=== PATIENT | female | born 1955 | race Caucasian/White ===

== ENCOUNTER → 2017-04-09 | Outpatient (CLI) | payer OTHER ==
[~2017-04-09] MED LIST: AZE137NAPT NS; MUSINEX PO; [UNRECOGNIZED DRUG - CODE] NS
--- NOTE | 2017-04-10 11:43 | RADIOLOGY IMAGING REPORT ---
FACILITY: [facility] - [place] PATIENT NAME: GINA JEONG : [id number] MR: [id number] V: [id number] EXAM DATE: [id number] ORDERING PHYSICIAN: DUKE HAWLEY TECHNOLOGIST: Alena Hernandez PROCEDURE:BILATERAL DIGITAL SCREENING MAMMOGRAM WITH CAD ASSISTED INTERPRETATION & 3D BREAST TOMOSYNTHYSIS COMPARISON:Prior mammograms 04/08/16, 03/20/15, 02/14/14, 02/08/14, 11/12/12, 11/06/11 INDICATIONS:SCREENING FINDINGS: Moderately dense fibroglandular tissue is seen throughout the breasts. The parenchymal pattern has remained stable when allowing for difference in mammographic technique & patient positioning. There is no evidence of malignant appearing mass, malignant appearing calcification or secondary sign of malignancy in either breast. DIAGNOSTIC CATEGORY 2--BENIGN FINDING. RECOMMENDATIONS: ROUTINE MAMMOGRAM AND CLINICAL EVALUATION. IMPRESSION: BIRADS 2: Benign finding 1. No significant abnormality is seen Dictated by: Karime Najera M.D. on 04/09/2017 at 14:47 Transcribed by: CARL on 04/09/2017 at 14:56 Approved by: Karime Najera M.D. on 04/10/2017 at 11:42 [facility]
== END ==
LOC: MAMO 01:53
PROVIDERS: ATTEND Obstetrics & Gynecology
DX: Z12.31 Encounter for screening mammogram for malignant neoplasm of breast (principal)
CPT/HCPCS: 77063; 77067

== ENCOUNTER → 2017-06-18 | Outpatient (CLI) | payer OTHER ==
[~2017-06-18] MED LIST changes: +CHRM1TAB PO; +PANT40TA65 PO; +[UNRECOGNIZED DRUG - CODE] PO
[2017-06-18 09:11] LABS: PLATELET COUNT, AUTOMATED 307 K/uL (150-450)
[2017-06-18 09:34] LABS: LDL CHOLESTEROL 136 mg/dl
== END ==
LOC: LAB 08:14
PROVIDERS: ATTEND Internal Medicine
DX: K21.9 Gastro-esophageal reflux disease without esophagitis (principal); E78.4 Other hyperlipidemia; H04.123 Dry eye syndrome of bilateral lacrimal glands
CPT/HCPCS: 82040; 82247; 82310; 82374; 82435; 82465; 82565; 82947; 83718; 84075; 84132; 84155; 84295; 84443; 84450; 84460; 84478; 84520; 85025

== ENCOUNTER → 2017-08-28 | Outpatient (CLI) | payer OTHER ==
[2017-08-28 11:46] LABS: PLATELET COUNT, AUTOMATED 285 K/uL (150-450)
== END ==
LOC: LAB 11:12
PROVIDERS: ATTEND Internal Medicine
DX: K21.9 Gastro-esophageal reflux disease without esophagitis (principal); E78.5 Hyperlipidemia, unspecified; R10.11 Right upper quadrant pain; R30.0 Dysuria
CPT/HCPCS: 36415; 81001; 82040; 82150; 82247; 82310; 82374; 82435; 82565; 82947; 83690; 84075; 84132; 84155; 84295; 84450; 84460; 84520; 85025; 87088

== ENCOUNTER → 2017-08-31 | Outpatient (CLI) | payer OTHER ==
--- NOTE | 2017-08-31 11:36 | RADIOLOGY IMAGING REPORT ---
FACILITY: [facility] - [place], [place] PATIENT NAME: Cass Perry : 1955 MR: [id number] V: [id number] EXAM DATE: ORDERING PHYSICIAN: YOON STEINBERG TECHNOLOGIST: Location: [facility] Patient: Cass Perry : 1955 Visit/Account:[id number] Date of Sevice: 08/31/2017 EXAMINATION: Abdominal ultrasound complete HISTORY: GERD, right upper quadrant pain x1 month COMPARISON: None. FINDINGS: Gallbladder: No stones, wall thickening, pericholecystic fluid or sonographic Avina sign. Liver: Negative. Common duct: Normal measuring four mm. Pancreas: Negative. Spleen: Normal in size and echogenicity measuring 8.2 cm in length. Kidneys: Normal in size and echogenicity, the right measures 9.5 cm in length, and the left 9.3 cm. No hydronephrosis. Upper abdominal aorta and IVC: Negative. Ascites: None. IMPRESSION: Normal abdominal ultrasound. Report Dictated By: Karime Najera MD at 08/31/2017 11:30 AM Report E-Signed By: Karime Najera MD at 08/31/2017 11:31 AM WSN:[email or web address]
== END ==
LOC: US 06:46
PROVIDERS: ATTEND Internal Medicine
DX: K21.9 Gastro-esophageal reflux disease without esophagitis (principal); E78.5 Hyperlipidemia, unspecified; R10.11 Right upper quadrant pain
CPT/HCPCS: 76700

== ENCOUNTER → 2017-10-05 | Outpatient (CLI) | payer OTHER ==
--- NOTE | 2017-10-05 14:14 | EKG ---
[place]AC[place] [facility] [place]IENT NAME: GINA JEONG : [id number] MR: [id number] V: [id number] EXAM DATE: ORDERING PHYSICIAN: BLAZE PANTOJA TECHNOLOGIST: GREYSON Test Reason : 200 Blood Pressure : / mmHG Vent. Rate : 078 BPM Atrial Rate : 078 BPM P-R Int : 142 ms QRS Dur : 096 ms QT Int : 386 ms P-R-T Axes : 060 -02 041 degrees QTc Int : 440 ms Sinus rhythm Left axis Hint of delta wave in limb leads Nonspecific interventricular conduction delay No previous ECGs available Confirmed by CARLOTA MCMAHON ([id number]) on 10/05/2017 3:54:24 PM Referred By: Tab PANTOJA Confirmed By:CARLOTA MCMAHON
== END ==
LOC: RESP 13:32
PROVIDERS: ATTEND Physician Assistant
DX: Z00.00 Encounter for general adult medical examination without abnormal findings (principal)
CPT/HCPCS: 93005

== ENCOUNTER → 2017-10-22 | Outpatient (CLI) | payer OTHER ==
--- NOTE | 2017-10-23 08:39 | RADIOLOGY IMAGING REPORT ---
FACILITY: [facility] - [place] PATIENT NAME: GINA JEONG : [id number] MR: [id number] V: [id number] EXAM DATE: [id number] ORDERING PHYSICIAN: DUKE HAWLEY TECHNOLOGIST: Yajaira Ashby RDMS PROCEDURE:US RIGHT BREAST COMPLETE COMPARISON:None. INDICATIONS:PAIN IN RIGHT BREAST FINDINGS: In the 9 o'clock position Right breast 2cm from the nipple is a 7.4cm cyst. Also in the 9 o'clock position of the Right breast 1cm from the nipple just anterior to the chest wall is a 7.3 x 5.9 x 8.8cm hypoechoic mass with irregular margins for which Ultrasound guided core biopsy is recommended. In the 10 o'clock position of the Right breast 1cm from the nipple is a 4.2mm hypoechoic nodule which is well circumscribed and may represent a small debris filled cyst. In the 6 o'clock position of the Right breast is a well circumscribed ovoid hypoechoic nodule measuring 1 x 0.58 x 0.76cm with no acoustic shadowing. This nodule is wider than tall may represent a fibroadenoma although 6 month follow-up recommended. In the 2 o'clock position of the Right breast is a 3.3mm well circumscribed hypoechoic nodule with faint acoustic enhancement may represent a debris filled cyst. No abnormality is identified in the Right axilla. DIAGNOSTIC CATEGORY 4--SUSPICIOUS FOR MALIGNANCY. RECOMMENDATIONS: SIX MONTH FOLLOW-UP ULTRASOUND: RIGHT BREAST. ULTRASOUND-GUIDED CORE BIOPSY: RIGHT BREAST. IMPRESSION: BIRADS 4: Suspicious for malignancy. Ultrasound guided core biopsy of the solid irregular hypoechoic mass in the 9 o'clock position of the Right breast 1cm from the nipple is recommended. A 6 month follow-up Right breast Ultrasound is recommended to evaluate the additional well circumscribed hypoechoic nodule as described on the Right breast. Dictated by: Karime Najera M.D. on 10/22/2017 at 15:34 Transcribed by: WM on 10/22/2017 at 16:01 Approved by: Karime Najera M.D. on 10/23/2017 at 8:37 [facility]
--- NOTE | 2017-10-23 08:39 | RADIOLOGY IMAGING REPORT ---
FACILITY: [facility] - [place] PATIENT NAME: GINA JEONG : [id number] MR: [id number] V: [id number] EXAM DATE: ORDERING PHYSICIAN: DUKE HAWLEY TECHNOLOGIST: Alena Hernandez PROCEDURE:RIGHT DIGITAL DIAGNOSTIC MAMMOGRAM WITH CAD ASSISTED INTERPRETATION & 3D TOMOSYNTHESIS COMPARISON:Prior mammograms 04/09/17, 04/08/16, 03/20/15, 02/14/14, 02/08/14, 11/12/12. INDICATIONS:RIGHT BREAST PAIN FINDINGS: Moderately heterogeneous fibroglandular tissue is seen throughout the breasts. In the lateral portion of the Right breast in the middle 03/18 there is a 7-8mm round nodule which appears to be present on the prior mammograms. There is a well circumscribed cyst in the 9 o'clock position of the Right breast on Today's Right breast Ultrasound likely accounting for this finding. Today's Right breast Ultrasound also demonstrated a irregular hypoechoic mass in the 9 o'clock position 1cm from the nipple for which Ultrasound guided core biopsy is recommended. DIAGNOSTIC CATEGORY 4--SUSPICIOUS FOR MALIGNANCY. RECOMMENDATIONS: SIX MONTH FOLLOW-UP ULTRASOUND: RIGHT BREAST. ULTRASOUND-GUIDED CORE BIOPSY: RIGHT BREAST. IMPRESSION: BIRADS 4: Suspicious for malignancy. Ultrasound guided core biopsy of the solid irregular hypoechoic mass 9 o'clock position of the Right breast 1cm from the nipple is recommended. As noted in Today's Right breast Ultrasound report 6 month follow-up Right breast Ultrasound also recommended to evaluate the well circumscribed hypoechoic nodules in the right breast. The patient will also be due for her annual mammogram in March 2018. Dictated by: Karime Najera M.D. on 10/22/2017 at 15:38 Transcribed by: WM on 10/22/2017 at 16:17 Approved by: Karime Najera M.D. on 10/23/2017 at 8:37 [facility]
== END ==
LOC: MAMO 01:17
PROVIDERS: ATTEND Obstetrics & Gynecology
DX: N60.01 Solitary cyst of right breast (principal); N63.13 Unspecified lump in the right breast, lower outer quadrant
CPT/HCPCS: 77061; 77065

== ENCOUNTER → 2017-10-27 | Outpatient (CLI) | payer OTHER ==
[2017-10-27 13:53] LABS: INR 0.98
== END ==
LOC: LAB 13:17
PROVIDERS: ATTEND Obstetrics & Gynecology
DX: Z01.812 Encounter for preprocedural laboratory examination (principal)
CPT/HCPCS: 36415; 85610

== ENCOUNTER → 2017-10-28 | Outpatient (CLI) | payer OTHER ==
--- NOTE | 2017-10-28 16:32 | RADIOLOGY IMAGING REPORT ---
FACILITY: [facility] - [place] PATIENT NAME: Cass Perry : 1955 MR: [id number] V: [id number] EXAM DATE: ORDERING PHYSICIAN: BLAZE PANTOJA TECHNOLOGIST: Location: [facility] [place] Patient: Cass Perry : 1955 Visit/Account:[id number] Date of Sevice: 10/28/2017 Exam type: BREAST CYST ASPIRATION RIGHT History: Indeterminate breast mass 9:00 position right breast 1 cm from the nipple just anterior to t he chest wall Comparison: Right breast ultrasound October 22, 2017. Findings: The patient initially presented for a biopsy of the hypoechoic nodule 9:00 position right breast just anterior to the chest wall. On the preliminary biopsy ultrasound today the mass appeared to demonst rate more defined borders with acoustic enhancement although a few internal echoes. The appearance w as more in keeping with a debris-filled cyst as opposed to solid mass. The patient's right breast wa s prepped and draped usual sterile fashion. Local anesthesia was accomplished with 1% lidocaine. Un gordon sonographic guidance an 18-gauge spinal needle was advanced percutaneously into this hypoechoic m ass approximately one elevator of blood-tinged fluid was removed from the cavity. The nodule was no longer visible sonographically following aspiration. The aspirate was sent to laboratory for cytolog y. The procedure was accomplished without apparent complication IMPRESSION: 1. Successful sonographically guided right breast cyst aspiration in the 9:00 position. Report Dictated By: Karime Najera MD at 10/28/2017 4:25 PM Report E-Signed By: Karime Najera MD at 10/28/2017 4:28 PM WSN:[email or web address]
== END ==
LOC: US 02:25
PROVIDERS: ATTEND Physician Assistant
DX: N60.01 Solitary cyst of right breast (principal)
CPT/HCPCS: 19000; 76942; 88104

== ENCOUNTER → 2017-12-31 | Outpatient (CLI) | payer OTHER ==
[~2017-12-31] MED LIST changes: +FLU60SYR36 IM; +LOR1 PO
== END ==
LOC: LAB 15:25
PROVIDERS: ATTEND Obstetrics & Gynecology
DX: N95.0 Postmenopausal bleeding (principal)
CPT/HCPCS: 88305

== ENCOUNTER → 2018-05-06 | Outpatient (CLI) | payer OTHER ==
--- NOTE | 2018-05-10 18:04 | RADIOLOGY IMAGING REPORT ---
[facility] PATIENT NAME: GINA JEONG : [id number] MR: [id number] V: [id number] EXAM DATE: ORDERING PHYSICIAN: JAIME HUANG TECHNOLOGIST: Aimee Lopez PROCEDURE:BILATERAL DIAGNOSTIC DIGITAL MAMMOGRAM WITH CAD ASSISTED INTERPRETATION & 3D TOMOSYNTHESIS COMPARISON:Prior mammograms 10/22/17, 04/09/17, 04/08/16, 03/20/15, 02/14/14. INDICATIONS:6 month follow up FINDINGS: The breasts are heterogeneously dense which can obscure small masses. The parenchymal pattern has remained stable allowing for difference in mammographic technique & patient positioning. A 6 month follow-up Right breast Ultrasound is recommended as described in Today's Right breast Ultrasound report. DIAGNOSTIC CATEGORY 3--PROBABLY BENIGN FINDING. RECOMMENDATIONS: SIX MONTH FOLLOW-UP ULTRASOUND: RIGHT BREAST. IMPRESSION: BIRADS 3: Probably benign finding. A 6 month follow-up Right breast Ultrasound is recommended as described in Today's Right breast Ultrasound report. Dictated by: Karime Najera M.D. on 05/06/2018 at 17:25 Transcribed by: WM on 05/07/2018 at 10:13 Approved by: Karime Najera M.D. on 05/10/2018 at 18:03 [facility]
--- NOTE | 2018-05-10 18:04 | RADIOLOGY IMAGING REPORT ---
FACILITY: [facility] PATIENT NAME: GINA JEONG : [id number] MR: [id number] V: [id number] EXAM DATE: [id number] ORDERING PHYSICIAN: JAIME HUANG TECHNOLOGIST: Marlena Adams RT(R)(CT) PROCEDURE:US RIGHT BREAST COMPLETE COMPARISON:Right breast Ultrasound 10/22/17. INDICATIONS:6 month follow up FINDINGS: In the 12 o'clock position of the Right breast 2cm from the nipple there is a 2mm cyst. In the 2 o'clock position of the Right breast 2cm from the nipple there is a 3.6mm well circumscribed ovoid hypoechoic nodule with acoustic enhancement it appears minimally increased when compared to the prior study. In the 6 o'clock position of the Right breast 2cm from the nipple there is an ovoid well circumscribed hypoechoic nodule measuring 8.6 x 6.7 x 6.4mm and appears relatively unchanged. In the 8 o'clock position of the Right breast 2cm from the nipple there is a 3mm cyst. In the 9 o'clock position of the Right breast 4cm from the nipple there is a 3mm cyst. In the 9 o'clock position of the Right breast 3cm from the nipple there is an additional small cyst not measured. In the 9 o'clock position of the Right breast 2cm from the nipple there is a 7.8mm cyst. In the 10 o'clock position of the Right breast 5cm from the nipple there is an additional small cyst not measured. DIAGNOSTIC CATEGORY 3--PROBABLY BENIGN FINDING. RECOMMENDATIONS: SIX MONTH FOLLOW-UP DIAGNOSTIC MAMMOGRAM: RIGHT BREAST. IMPRESSION: BIRADS 3: Probably benign finding. There are numerous cysts scattered throughout the Right breast. There are several well circumscribed hypoechoic nodules which have remained relatively stable although a 6 month follow-up Right breast Ultrasound is recommended to document stability over a 2 year period. Dictated by: Karime Najera M.D. on 05/06/2018 at 17:23 Transcribed by: WM on 05/07/2018 at 10:22 Approved by: Karime Najera M.D. on 05/10/2018 at 18:03 [facility]
== END ==
LOC: MAMO 00:28
PROVIDERS: ATTEND Obstetrics & Gynecology
DX: N60.01 Solitary cyst of right breast (principal)
CPT/HCPCS: 77062; 77066

== ENCOUNTER → 2018-07-20 | Outpatient (CLI) | payer OTHER ==
[2018-07-20 16:46] LABS: PLATELET COUNT, AUTOMATED 358 K/uL (150-450)
== END ==
LOC: LAB 16:27
PROVIDERS: ATTEND Nurse Practitioner Primary Care
DX: R42 Dizziness and giddiness (principal)
CPT/HCPCS: 36415; 82040; 82247; 82310; 82374; 82435; 82565; 82947; 84075; 84132; 84155; 84295; 84450; 84460; 84520; 85025